=== PATIENT | female | born 1990 | race Two or more races ===

== ENCOUNTER 2020-03-13 02:10 | Inpatient (IN) | payer SELFPAY ==
[~2020-03-13] VITALS: Ht 154.9 cm; Wt 93.0 kg
[2020-03-13] MEDS ORDERED: LACTATED RINGER'S 1,000 ML IV ONE (03:00)
== END 2020-03-13 04:45 | disposition home or self-care (01) | DRG 831 ==
LOC: NUR 02:10 → LDRP 02:28
PROVIDERS: ADMIT Obstetrics & Gynecology; ATTEND Obstetrics & Gynecology
DX: O98.513 Other viral diseases complicating pregnancy, third trimester (principal); U07.1 COVID-19; O76 Abnormality in fetal heart rate and rhythm complicating labor and delivery; Z3A.37 37 weeks gestation of pregnancy
CPT/HCPCS: 59025; 96360; 96361; G0378